=== PATIENT | female | born 1995 | race African-American/Black ===

== ENCOUNTER 2019-02-13 08:29 | Emergency (ER) | payer BC ==
[~2019-02-13] VITALS: Ht 170.2 cm; Wt 98.0 kg
[2019-02-13 09:05] VITALS: BP 118/62
[2019-02-13] MEDS: DIAZEPAM 5 MG TABLET PO ONE (09:05)
[2019-02-13] MEDS: KETOROLAC 60MG/2ML VIAL IM ONE (09:05)
== END 2019-02-13 10:00 | disposition home or self-care (01) ==
LOC: ER 08:29
DX: S60.511A Abrasion of right hand, initial encounter (principal); F41.9 Anxiety disorder, unspecified; M62.838 Other muscle spasm; V49.49XA Driver injured in collision with other motor vehicles in traffic accident, initial encounter; Y93.89 Activity, other specified; Y92.89 Other specified places as the place of occurrence of the external cause; Y99.8 Other external cause status; Z88.0 Allergy status to penicillin
CPT/HCPCS: 73130; 81025; 96372; 99283; J1885

== ENCOUNTER 2019-11-08 21:05 | Emergency (ER) | payer BC, OTHER ==
[~2019-11-08] VITALS: Ht 180.3 cm; Wt 136.0 kg
[2019-11-08] MEDS ORDERED: KETOROLAC 30MG/ML VIAL IM ONE (22:30)
[2019-11-08] MEDS ORDERED: HYDROCODONE/ACETAMINOPHEN 5/325MG TABLET PO ONE (22:30)
[2019-11-08 23:30] VITALS: BP 117/71
== END 2019-11-09 00:20 | disposition home or self-care (01) ==
LOC: ER 21:20
DX: M54.5 Low back pain (principal); J45.909 Unspecified asthma, uncomplicated; E66.9 Obesity, unspecified; Z68.41 Body mass index [BMI] 40.0-44.9, adult; Z88.0 Allergy status to penicillin
CPT/HCPCS: 72100; 96372; 99283; J1885